=== PATIENT | male | born 1945 | race Caucasian/White ===

== ENCOUNTER 2017-12-28 18:58 | Emergency (ER) | payer OTHER ==
--- NOTE | 2017-12-28 19:32 | EDPHY ---
H & P Time Seen by Provider: 12/28/17 19:10 HPI/ROS: CHIEF COMPLAINT: Problem with vision in the left eye HISTORY OF PRESENT ILLNESS: Patient travels for work and was in [place] when he started having symptoms on December 04. He would intermittently feel like there was blood streaks coming down his eye from the top to the bottom more like there was a gauze over his left eye. He never had any symptoms in his right eye. He return [place] the [place] On [place] 06 and at [place] in December 08 was seen by an livestock [employer] inspector who told him no definite diagnosis, get rechecked in a couple of weeks. On December 23 or of this week he had recurrent symptoms and was again seen by 2nd [place] livestock [employer] inspector and immediately sent to a [facility] specialist. The patient tells me that he received no specific diagnosis and was told to just see what happens. He tells me also that he was able to read at least part of the eye chart during each of these visits to ophthalmology, feels like his vision was worse today since 4:45 p.m.. He had recurrent streaks of what he thinks is blood dripping down his eye but no floaters or flashes. REVIEW OF SYSTEMS: No headache, no right eye symptoms PAST MEDICAL HISTORY: Includes kidney stones and diabetes Social history: [place] patient General Appearance: Alert, no distress. Visual acuity: noted from nursing notes. Lids and Lashes: No edema, no stye, no erythema. Conjunctivae: Not injected, no exudate. Sclera: No subconjunctival hemorrhage, no icterus. Pupils: Equal and round, normally reactive. Corneas: No foreign body on surface of cornea. Anterior chamber: Difficult to see the vessels or the retinal disc. External: No proptosis, no periorbital swelling or redness or tenderness. EOMI. Emergency Department course/MDM: Patient's vision is only to light and motion and fingers on the left. He can't read the chart at all. Discussed with Dr. Chicho Walter [employer] inspector at 7:39 p.m.; she does not have [facility] privileges and lives in [place], requested [facility] ophthalmology consultation. 817pm discussed with Dr. Arambula, opthalmology. Requested sedimentation rate to be sent. He will see the patient in his office tonight at 9:00 p.m.. Smoking Status: Never smoked Constitutional: Initial Vital Signs Temperature (C) 36.5 C 12/28/17 19:23 Heart Rate 69 12/28/17 19:23 Respiratory Rate 18 12/28/17 19:23 Blood Pressure 129/79 H 12/28/17 19:23 O2 Sat (%) 95 12/28/17 19:23 O2 Delivery Mode Room Air Allergies/Adverse Reactions: Sulfa (Sulfonamide Antibiotics) Allergy (Verified 12/28/17 19:21) Home Medications: Medication Instructions Recorded Aspirin 325 mg (*) 12/28/17 Cardura 12/28/17 Metformin HCl [Fortamet] 12/28/17 SIMVASTATIN 12/28/17 MDM/Departure - Depart Disposition: Home, Routine, Self-Care Clinical Impression: Vision loss, left eye Condition: Good Instructions: Additional Information Additional Instructions: See Dr. Arambula from Ophthalmology in his office at 9:00 p.m. Tonight. Referrals: JOSE A ENAMORADO [Primary Care Provider] - As per Instructions Raúl Arambula MD [Medical Doctor] - As per Instructions
[2017-12-28 20:29] VITALS: BP 120/71
== END 2017-12-28 20:38 | disposition home or self-care (01) ==
DX: H54.62 Unqualified visual loss, left eye, normal vision right eye (principal); E11.9 Type 2 diabetes mellitus without complications; Z79.82 Long term (current) use of aspirin; Z79.84 Long term (current) use of oral hypoglycemic drugs